=== PATIENT | female | born 1945 | race Caucasian/White ===

== ENCOUNTER 2023-11-28 02:40 | Observation (INO) | payer OTHER, SELFPAY ==
[2023-11-27 22:52] VITALS: BP 168/67
[2023-11-27 23:26] LABS: Hematocrit 36.6 % (37.0-47.0); Hemoglobin 12.8 g/dL (12.0-16.0); Mean Corpuscular Hgb 30.1 pg (27.0-31.0); Mean Corpuscular Volume 86.1 fL (81.0-99.0); Platelet Count 237 10^3/uL (130-400); Red Blood Cell Count 4.25 10^6/uL (4.20-5.40); White Blood Cell Count 5.6 10^3/uL (4.8-10.8)
[2023-11-27 23:43] LABS: ALT (SGPT) 20 U/L (0-35); AST (SGOT) 28 U/L (14-36); Albumin 4.2 g/dl (3.5-5.0); Alkaline Phosphatase 66 U/L (38-126); Blood Urea Nitrogen 24 mg/dl (7-17); Calcium 9.1 mg/dl (8.4-10.2); Carbon Dioxide 30 mmol/L (22-30); Chloride 101 mmol/L (98-107); Glucose 165 mg/dl (70-99); Potassium 3.4 mmol/L (3.5-5.1); Sodium 134 mmol/L (135-145); Total Bilirubin 0.4 mg/dl (0.2-1.3); Total Protein 6.9 g/dl (6.3-8.2); eGFR 42.62
--- NOTE | 2023-11-27 23:48 | ED.GENMED ---
History of Present Illness
General
Chief Complaint: Dizziness
Source: patient
Exam Limitations: none
Time Seen by Provider: 11/27/23 23:13
Nursing documentation reviewed up to this point in time: agreed with
Travel History
Have you had any contact with someone who has COVID-19?: No
Do you have any symptoms of coronavirus? Fever > 100 degrees, chills, cough, shortness of breath, sore throat, loss of taste or smell, muscle aches, or headache?: No
History of Present Illness
History of Present Illness:
77-year-old female presents the emergency department due to feeling dizzy after an dinner at about 830 tonight, headache, nausea and vomiting. She feels forgetful episode trouble and was having trouble remembering who the president was.
Past History
Past History
ED Past Medical History: HTN
ED Past Surgical History: , Gynecological (hysterectomy), Orthopedic (wrist surgery), Tonsilectomy and Other (lymph node dissection)
Social History
Tobacco: Non-smoker
Alcohol: None
Drug: None
Personal:
Living: with family
Review of Systems
Review of Systems
Allergies reviewed?: Yes
All Other Systems: Not applicable
Constitutional: Reports no symptoms
EENT: Reports no symptoms
Respiratory: Reports no symptoms
Cardiac: Reports no symptoms
ABD/GI: Reports nausea and vomiting
: Reports no symptoms
Musculoskeletal: Reports no symptoms
Skin: Reports no symptoms
Neurological: Reports no symptoms
Endocrine: Reports no symptoms
Hematologic/Lymphatic: Reports no symptoms
Psychiatric: Reports no symptoms
Phy Exam
Physical Exam
Physical Exam:
Physical Exam
General: no apparent distress, not acutely ill
Neck: supple. no meningeal signs. normal posterior pharynx
Heart: s1/s2 regular rate and rhythm, no murmur. equal radial
pulses.
HEENT: Pupils equal round reactive to light, EOMI
Lungs: no acute respiratory distress. clear bilaterally
Abdomen: normal bowel sounds. not tender. no CVAT
Neuro: alert and oriented. no focal neurological deficits cranial nerves II through XII intact intermittent mild expressive aphasia
Skin: no rash
Psychiatric: well kept. interactive and cooperative
Extremities: no edema. no calf tenderness. negative homans. good distal pulses
Scores
NIH Stroke Score
Level of Consciousness: 0 - Alert
LOC Questions: 0-Answers both correctly
LOC Commands: 0-Performs both correctly
Best Horizontal Gaze: 0-Normal
Visual Dhaliwal: 0=Normal, no visual loss
Facial Palsy: 0=Normal, symmetrical
Motor - Right Arm: 0=No drift 10 seconds
Motor - Left Arm: 0=No drift 10 seconds
Motor - Right Le-No drift 5 seconds
Motor - Left Le-No drift 5 seconds
Limb Ataxia: 0-Absent
Sensation: 0-Normal
Best Language: 1-Mild aphasia
Dysarthria: 0-Normal
Extinction and Inattention: 0-No abnormality
Total Score:: 1
Thrombolytic Contraindication
Inclusion and Exclusion criteria reviewed: Yes
IAT Contraindications: NIHSS < 6
Course
Orders/Labs/Results
Orders:
Orders
11/27/23 23:00
EKG [Electrocardiogram (*1)] Urgent
Reason for Study: Vertigo / Dizzy
EKG- Treatment ONCE
11/27/23 23:22
CBC/No Diff [Complete Blood Count/No Diff] Urgent
CMP [Comprehensive Metabolic Panel] Urgent
11/27/23 23:45
CT Head W/o Cont STROKE ALERT Urgent
Reason For Exam: expressive aphasia
CT Head/Neck Ang STROKE ALERT Urgent
Comment:
Reason For Exam: expressive aphasia since 830pm
11/27/23 23:49
Aspirin 325 mg PO NOW STA
Clopidogrel Bisulfate [Plavix] 75 mg PO NOW STA
11/28/23 02:03
Admit/Transfer Patient As Directed
Co-Sign Provider:
Level of Care: Observation services
Assign to:: Telemetry
Physician / Group: Randy
Diagnosis: CVA / TIA
Reason for Telemetry: CVA/TIA
Date to Stop Telemetry: 12/01/23
Time to Stop Telemetry: 11:00
Code Status As Directed
Resuscitation Status: Full Code
11/28/23 04:40
Acetaminophen [Tylenol] 650 mg PO Q4HPRN PRN
HydrALAZINE [Apresoline] 5 mg IV Q6HPRN PRN
Lactated Ringers [Lr] 1,000 ml IV 80 mls/hr
Prochlorperazine [Compazine] 5 mg IV Q6HPRN PRN
11/28/23 04:40
NEUROLOGY CONSULT Routine
Consulting Provider: Toyin Strong
Was physician already notified: Yes
Reason for consult: CVA / TIA
Activity As Directed
Activity Level: Ambulate
With Assistance
EKG with chest pain [ECG as needed] As Directed
ECG as needed for:: Chest Pain
I/O [Intake/ Output] As Directed
Frequency: Per unit guidelines
Neurological Checks As Directed
Frequency: q4h
Orthostatic Vital Signs As Directed
Orthostatic VS Frequency: BID
Pneumatic Compression Sleeves As Directed
Type: Knee high
Vital Signs As Directed
Frequency: Per unit guidelines
Weight As Directed
Frequency: Daily
Oxygen Therapy [O2 Therapy] [RESP] Routine
Titrate/Wean O2 to maintain O2 sat greater than (%): 94
Ot Eval And Treat Routine
PT Consult [Pt Eval And Treat] Routine
Activity Level: Ambulate
With Assistance
DX Deep Vein Thrombosis Video Routine
11/28/23 04:53
Basic Metabolic Panel IN AM
Cardiovascular Evaluation IN AM
Complete Blood Count/No Diff IN AM
11/28/23 06:00
MR Brain Without Contrast IN AM
Comment:
Reason For Exam: CVA / TIA
Recent pill cam endoscopy?: No
11/28/23 08:00
Aspirin Chewable [Low Strength Aspirin] 81 mg PO DAILY
Clopidogrel Bisulfate [Plavix] 75 mg PO DAILY
Olmesartan Medoxomil [Benicar] 20 mg PO DAILY
Speech Screening from Bharathi Routine
11/29/23 Breakfast
Regular
12/01/23 11:00
DC Protocol for Telemetry ONCE
Abnormal Lab Results
11/27/23
23:22
Hct 36.6 L %
(37.0-47.0)
Sodium 134 L mmol/L
(135-145)
Potassium 3.4 L mmol/L
(3.5-5.1)
BUN 24 H mg/dl
(7-17)
Creatinine 1.3 H mg/dL
(0.6-1.0)
Glucose 165 H mg/dl
(70-99)
11/27/23 23:22
11/27/23 23:22
Vital Signs
Initial and Last Documented VS:
Initial Vital Signs
Temp Pulse Resp BP Pulse Ox
97.7 F 65 18 168/67 98
11/27/23 22:52 11/27/23 22:52 11/27/23 22:52 11/27/23 22:52 11/27/23 22:52
Last Documented Vital Signs
Temp Pulse Resp BP Pulse Ox
97.7 F 71 13 189/79 96
11/27/23 22:52 11/28/23 05:30 11/28/23 02:15 11/28/23 02:37 11/28/23 05:30
MDM/Problems Addressed
Differential Diagnosis Includes:
CVA, TIA
MDM/Problems Addressed:
78-year-old female with possible mild CVA versus TIA. Discussed with neurology, recommended aspirin and Plavix.
Chronic conditions affecting care: HTN and Other (Ulcerative colitis)
Acute Exacerbation and/or Progression of Chronic Illness: HTN
*Radiology
Radiology exam reviewed: radiology read reviewed (ct head nad, cta shows narrowing of left A2, otherwise no largre vessel occlusion)
*Pulse Oximetry
Patient hypoxic: no
*EKG
Interpreted by ED Provider?: Yes
EKG Intrepretation Date: 11/28/23
EKG Intrepretation Time: 23:34
Interpretation: abnormal
Comparison EKG: no comparison EKG present
Heart Rate: 64
Rate: normal
Rhythm: sinus and PAC's
Fitzpatrick: normal axis
Interval: normal interval
QRS Pattern: normal QRS
Ischemia: no ischemia
*Teaching Manager Interpretation
Rate: Teaching Manager- N/A
*Critical Care Note
Total Time (30-74mins, 75-104mins- exclusive of procedures): Not Applicable
Patient Management
Social determinants of health affecting care: Strong social support
Discussion with other providers: Hospitalist and Quarter Backer (neurology Dr. Strong)
Escalation/DeEscalation of care consider admission/obs:
admit indicated
ED Attending Note
-
Portions of this chart may have been created with voice recognition software.� Occasional wrong word or��sound alike� substitutions may have occurred due to the inherent limitations of voice recognition software.
Discharge Plan
Departure
Patient Disposition: Admit
Date of Disposition: 11/28/23
Time of Disposition: 00:43
Presentation/result/management discussed w/ accepting MD/DO: Hospitalist
Patient with high blood pressure during this ER visit?: Yes
Condition: Good
Discharge Problem:
TIA (transient ischemic attack)
Interventions
Interventions:
*Risk Screen - Suicide Last Done: 11/28/23 00:35
*General Assessment Last Done: 11/27/23 22:54
*Neglect/Abuse Screening Last Done: 11/28/23 00:35
*ED COVID-19 Vaccine History Last Done: 11/27/23 22:53
ED- Neurological Assessment Last Done: 11/27/23 23:15
ED Swallowing Screen Last Done: 11/28/23 00:19
[2023-11-28] VITALS (16 sets, daily range): BP systolic 116–198; BP diastolic 69–97; PULSE 86–110; BMI 23.3; BMI 22.1
[2023-11-28] MEDS: ASPIRIN 325 MG PO (00:16)
[2023-11-28] MEDS: PLAVIX 75 MG PO ×2 (00:16→08:22)
--- NOTE | 2023-11-28 02:07 | HPS.HSE ---
Family Physician
-
Family Physician: Malika Doan
Chief Complaint
-
Weakness, N/V, Word-finding difficulty
History of Present Illness
Patient is a 78y F with PMH significant for hypertension, depression and PMR who presents to ED complaining of episode of weakness, etc this evening. Patient states that she had a very stressful day today. She went to visit her daughter who is
very ill and soon to be homeless. It was a distressing visit. Patient returned home and was watching TV this evening when she began to feel 'weak all over'. No focal symptoms, numbness, vision changes, etc. This was approximately 9:30 PM.
Shortly thereafter, patient states that she felt like she was spinning and she developed N/V x multiple episodes. EMS was called.
On their arrival, patient was unable to recall the name of president, her social security number and some other information that she states she is typically well aware of.
She had no slurred speech or facial droop. No focal numbness / weakness. Patient did complain of a frontal headache.
Patient admits that her last several months in general have also been very stressful. She recently lost her own house, suffered a significant LUE injury in the summer and has had issues with family / daughter as noted above.
Patient denies any prior history of CVA. No prior history of similar symptoms.
She had GCA / PMR a few years ago. She completed treatment (with an infusion therapy) and has had no recurrence of symptoms since that time.
Patient denies any recent med changes.
Medical History
Past Medical History
Past Medical History: Reports Other
Additional Past Medical History:
GCA / PMR
Hypertension
Anxiety / Depression
Ulcerative Colitis
Breast Cancer s/p Lumpectomy / XRT
Past Surgical History: Reports Other
Additional Past Surgical History:
T&A
Uvulectomy
Cataracts
LUE ORIF
Foot Surgery
x 3
Bilateral Lumpectomy / Axillary Dissections (separate occurrences)
Lipoma Excision (abdomen)
Urethral Dilation
Social History
Tobacco: Non-smoker
Alcohol: None
Drug: None
Family History
Family History: Not pertinent
Allergies / Home Medications
Allergies reflects when Allergies were last updated in [employer].
Home Medications with original date entered in [employer]
Allergy/Medication List:
Allergies
Allergy/AdvReac Type Severity Reaction Status Date / Time
Penicillins Allergy Unknown Verified 11/27/23 22:49
Home Medications
duloxetine 11/28/23
magnesium 11/28/23
mesalamine 11/28/23
multivitamin 11/28/23
olmesartan 11/28/23
potassium 11/28/23
If Other, explain: Patient is not aware of current doses.
Review of Systems
-
History Source: Patient
A 12 point ROS was completed and negative except as noted: Yes
Constitutional: Reports Fatigue; Denies Fever or Chills
EENT: Denies Sore Throat
Respiratory: Denies Cough or Trouble Breathing
Cardiac: Denies Chest Pain or Palpitations
Abdomen/GI: Reports Nausea and Vomiting; Denies Abdominal Pain, Diarrhea, Constipated, Bloody Stools or Black Stools
: Denies Dysuria, Frequency, Flank Pain or Incontinence
Musculoskeletal: Denies Joint Pain or Edema
Neurological: Reports Dizzy, Headache and Other (Speech difficulty); Denies Weakness or Numbness
Psych: Reports Depression and Anxiety
Physical Exam
Vital Signs
Vital Signs
Temp Pulse Resp BP Pulse Ox
97.7 F 72 22 187/85 96
11/27/23 22:52 11/28/23 01:45 11/28/23 01:30 11/28/23 01:00 11/28/23 01:30
Physical Exam
General: Other (78y F in no acute distress.)
HEENT: Moist mucous membranes and PERRLA
Respiratory: Clear; No Wheezes, Rales or Rhonchi
Cardiac: S1/S2 and Regular Rhythm; No Murmur
GI: Soft, Non Tender, Non Distended and Normal Bowel Sounds
Musculoskeletal: No Clubbing, No Cyanosis and No Edema
Neuro: AO x 3 and Nonfocal/grossly intact
Laboratory Results
-
11/27/23 23:22
11/27/23 23:22
Laboratory Results
Total Bilirubin 0.4 mg/dl (0.2-1.3) 11/27/23 23:22
AST 28 U/L (14-36) 11/27/23 23:22
ALT 20 U/L (0-35) 11/27/23 23:22
Alkaline Phosphatase 66 U/L (38-126) 11/27/23 23:22
Impression/Plan
-
A/P: Patient is a 78y F with PMH significant for anxiety / depression and GCA / PMR who presents to ED complaining of weakness, N/V and word-finding difficulty.
Word Finding Difficulty / Expressive Aphasia
Headache / Dizziness
N/V
- Observe overnight for further evaluation and treatment.
- CT and CTA essentially unremarkable in the ED. A2 stenosis noted but not consistent with presenting symptoms.
- Check MR brain in AM.
- Neuro checks throughout the night.
- Monitor on tele. Serial exams.
- Neuro eval in AM.
- ASA / Plavix for now.
- Follow for any new / recurrent symptoms.
- Seems likely that symptoms are related to / triggered by recent significant stressors as outlined in HPI.
- ? pre-syncope given description of symptoms.
Hypertension - Uncontrolled
- Patient states that her BP has been high at PCP visits recently. She has f/u visit upcoming.
- On olmesartan but cannot recall dose.
- Continue at 20mg daily for now and adjust / add to regimen as needed for improved BP control.
Anxiety / Depression
- Recent increase in stressors as noted.
- Resume duloxetine once dose has been verified.
- Consider outpatient Psych evaluation for additional recommendations / support.
Ulcerative Colitis
- Stable. No recent GI issues / symptoms.
- Resume mesalamine one dose verified.
DVT Prophylaxis: SCDs
Code Status: Full
[2023-11-28] MEDS: LR 1000 IV (04:00)
[2023-11-28 05:17] LABS: Hemoglobin 12.2 g/dL (12.0-16.0); Mean Corp Hgb Conc. 34.9 g/dL (33.0-37.0); Mean Corpuscular Hgb 30.4 pg (27.0-31.0); Mean Corpuscular Volume 87.3 fL (81.0-99.0); Mean Platelet Volume 9.1 fL (7.4-10.4); Platelet Count 253 10^3/uL (130-400); Red Blood Cell Count 4.01 10^6/uL (4.20-5.40); Red Cell Dist. Width 12.9 % (11.5-14.5); White Blood Cell Count 5.5 10^3/uL (4.8-10.8)
[2023-11-28 05:48] LABS: Blood Urea Nitrogen 24 mg/dl (7-17); Carbon Dioxide 28 mmol/L (22-30); Chloride 99 mmol/L (98-107); Estimated Creatinine Clearance 32 ml/min; Glucose 144 mg/dl (70-99); HDL Cholesterol 81 mg/dl; LDL Cholesterol, Calculated 105 mg/dl; Potassium 3.5 mmol/L (3.5-5.1); Sodium 135 mmol/L (135-145); Total Cholesterol 196 mg/dl (50-199); Triglyceride 53 mg/dl (10-149); Very Low Density Lipoprotein 10 mg/dl (0-30); eGFR 51.75
--- NOTE | 2023-11-28 07:49 | W.PN.HOSP.TC ---
Today's Communication/Plan
-
see A/P
Assessment / Plan
Assessment / Plan
HPI: 78y F with PMH significant for hypertension, depression and PMR who presented to ED complaining of episode of weakness.� Patient states that she had a very stressful day.� She went to visit her daughter who is very ill and soon to be
homeless.� It was a distressing visit.� Patient returned home and was watching TV when she began to feel 'weak all over'.� No focal symptoms, numbness, vision changes, etc.� This was approximately 9:30 PM.� Shortly thereafter, patient states that
she felt like she was spinning and she developed N/V x multiple episodes.� EMS was called.
On their arrival, patient was unable to recall the name of president, her social security number and some other information that she states she is typically well aware of.
She had no slurred speech or facial droop.� No focal numbness / weakness.� Patient did complain of a frontal headache.
Patient admits that her last several months in general have also been very stressful.� She recently lost her own house, suffered a significant LUE injury in the summer and has had issues with family / daughter as noted above.
Patient denies any prior history of CVA.� No prior history of similar symptoms.
She had GCA / PMR a few years ago.� She completed treatment (with an infusion therapy) and has had no recurrence of symptoms since that time.
Patient denies any recent med changes.
A/P:
# Word Finding Difficulty / Expressive Aphasia
# Headache / Dizziness
# N/V
Neurologic symptoms have resolved.
Symptoms related to / triggered by recent significant stressors as outlined in HPI.
? somatization vs pre-syncope vs stroke rule out
CT and CTA essentially unremarkable.� A2 stenosis noted but not consistent with presenting symptoms.
Check MR brain
Neuro checks throughout the night.
Monitor on tele.� Serial exams.
Neuro eval
ASA / Plavix for now.
# Hypertension - Uncontrolled
Patient states that her BP has been high at PCP visits recently.� She has f/u visit upcoming.
On olmesartan but cannot recall dose. Continue at 20mg daily for now and adjust / add to regimen as needed for improved BP control.
IV Hydralazine PRN
# Anxiety / Depression
Recent increase in stressors as noted.
Resume duloxetine once dose has been verified.
Consider outpatient Psych evaluation for additional recommendations / support.
# Ulcerative Colitis, Stable.�
No recent GI issues / symptoms.
Resume mesalamine one dose verified.
DVT Prophylaxis:� SCDs
Code Status:� Full
Anticipated Discharge: Within 24 hours
Subjective/Interval History
-
Date of Service: November 28, 2023
Objective Data
-
Labs:
Laboratory Results
11/27/23 11/28/23
23:22 04:53
WBC 5.6 5.5
Hgb 12.8 12.2
Hct 36.6 L 35.0 L
Plt Count 237 253
Sodium 134 L 135
Potassium 3.4 L 3.5
Chloride 101 99
Carbon Dioxide 30 28
BUN 24 H 24 H
Creatinine 1.3 H 1.1 H
Glucose 165 H 144 H
Calcium 9.1 9.0
Total Bilirubin 0.4
AST 28
ALT 20
Alkaline Phosphatase 66
Vital Signs:
Vital Signs
Temp Pulse Resp BP Pulse Ox
36.5 C 71 13 189/79 96
11/27/23 22:52 11/28/23 07:30 11/28/23 02:15 11/28/23 02:37 11/28/23 07:30
I&O
11/27/23 11/28/23 11/29/23
06:59 06:59 06:59
Intake Total 440 / 440
Output Total 200 / 200
Balance 240 / 240
Review of Systems
-
All other systems: Reviewed and negative
Physical Exam
-
General: Well Developed, Well Nourished, No Apparent Distress, Comfortable and Conversant; Negative Respiratory Distress
HEENT: Normocephalic, Atraumatic, Nose Appears Normal and Ears Appear Normal; Negative Oxygen
Respiratory: Clear to Auscultation and Non Labored Respirations; Negative Accessory Resp Muscle Use
Cardiac: Regular Rhythm and S1/S2
GI: Soft, Nontender, Nondistended and Normal Bowel Sounds
Skin: Warm and Dry
Neuro: Awake, Alert, Oriented and AO x 3
Psych: Calm and Intact Judgement/Insight
Data Reviewed
-
CT Scan: Report Reviewed by me
Labs: Labs Reviewed by me
[2023-11-28] MEDS: LOW STRENGTH ASPIRIN 81 MG PO (08:22)
[2023-11-28] MEDS: BENICAR 20 MG PO (09:00)
[2023-11-28] MEDS: KCL 40 MEQ PO (09:04)
--- NOTE | 2023-11-28 10:12 | CON.NEURO4 ---
Consultation - Neurology 4
-
CONSULTING PHYSICIAN: Dr. Strong
REFERRING PHYSICIAN: Dr. Garcia
DICTATED BY: Dr. Strong
DATE/TIME OF REQUEST: 11/27/23 in the late evening
DATE/TIME OF CONSULTATION: 11/28/23 at 915
Reason for Consultation: weakness, word finding difficulty
History of Present Illness:
78-year-old female with past medical history of hypertension, UC, breast cancer status post chemotherapy, lumpectomy and XRT resulting in some 'chemo brain' since 2014, head trauma, GCA/PMR anxiety and depression brought in yesterday evening after
9:30 PM on that of generalized weakness, nausea and vomiting, 'feeling like she was off-center but the room was not spinning around her,' found to have confusion and word finding difficulty. On arrival she could not name the president, her Social
Security number or other basic information she would normally know. She describes symmetric weakness in arms and legs. She 'very sick dog that she normally has to carry up the stairs before bed and she cannot hold them up.' She had a frontal
headache with the event. No clear change in her speech. Does have some degree of baseline dysarthria as she is a dental list. No clear facial droop. No focal numbness. She states that she had a migraine headache decades ago but has no right or
history of migraine. No prior history of stroke or seizure.
He had a concussion several years ago when she slipped on a wet surface and fell flat on her back, striking the back of her head. No associated loss of consciousness.
She reported on baseline level of 'chemo brain' since getting chemo for breast cancer in 2014.
She has been experiencing a severe level of stress. She injured her LUE. In the last few months she lost her house. Her dog has cancer. She had a very stressful day yesterday after visiting her daughter who is ill and soon to be homeless. This
event occurred after returning home from seeing her daughter. She states that she lives with her partner who and generally 'tries to micromanage her' which increases her stressful. She denies any physical or verbal abuse. She to duloxetine as an
outpatient. She states that she has had trouble finding a psychiatrist as an outpatient after her previous provider no longer takes her insurance.
Past Medical History:
GCA / PMR
Hypertension
Anxiety / Depression
Ulcerative Colitis
Breast Cancer s/p Lumpectomy / XRT
head trauma
Surgical History:
T&A
Uvulectomy
Cataracts
LUE ORIF
Foot Surgery
x 3
Bilateral Lumpectomy / Axillary Dissections (separate occurrences)
Lipoma Excision (abdomen)
Urethral Dilation
Family History:
reviewed and noncontributory
Social History:
Tobacco: Non-smoker
Alcohol: None
Drug: None
Allergies
Penicillins Allergy (Verified 11/27/23 22:49)
Unknown
Home Medications
Medication Instructions Recorded
duloxetine 11/28/23
magnesium 11/28/23
mesalamine 11/28/23
multivitamin 11/28/23
olmesartan 11/28/23
potassium 11/28/23
Review of Symptoms:
Patient denies any fever, headache, chest pain, shortness of breath, GI or symptoms.
�Per the HPI.�All systems are reviewed negative except above.
Vital Signs
Temp Pulse Resp BP Pulse Ox
97.7 F 66 13 127/83 96
11/27/23 22:52 11/28/23 09:45 11/28/23 02:15 11/28/23 08:24 11/28/23 08:30
Lab Results
11/28/23 04:53
11/28/23 04:53
Sodium 135 mmol/L (135-145) 11/28/23 04:53
Potassium 3.5 mmol/L (3.5-5.1) 11/28/23 04:53
BUN 24 mg/dl (7-17) H 11/28/23 04:53
Glucose 144 mg/dl (70-99) H 11/28/23 04:53
Calcium 9.0 mg/dl (8.4-10.2) 11/28/23 04:53
LDL Cholesterol, Calc 105 mg/dl 11/28/23 04:53
Physical Exam:
The patient is afebrile, heart sounds S1 and S2 are regular and chest is clear to auscultation bilaterally.
NIH Stroke Scale:
I performed the NIH stroke scale on the patient on 11/28/23 at . The patient scored 3 points on the NIH stroke scale assessment. 1 point for LUE motor (unclear if this is baseline--does have a h/o LUE injury), 1 point each for BLE motor with
giveaway weakness.
Neurologic Examination:
The patient is awake, alert and oriented x 3. She is able to follow commands and answer questions appropriately. There is no aphasia; some mild dysarthria that appears to be her baseline as she is edentulous. On cranial nerve assessment, pupils
are 3 mm bilateral, round and reactive to light and accommodation. Visual corral are full. Extraocular movements are intact. Facial sensations are intact and bilaterally symmetrical, there is no facial asymmetry. Hearing is intact bilaterally to
normal conversation volume. Tongue palate and uvula are midline. Sternocleidomastoid strengths are full bilaterally. On motor exam she exhibited giveaway weakness in the LUE and BLE. Deep tendon reflexes are 2+ bilateral upper and lower extremities
and Babinski is absent bilaterally. Sensations of temperature and light touch are intact and bilaterally symmetrical. There was no extinction noted on double simultaneous stimulation. Coordination is intact by finger to nose bilaterally.
Neuro Imaging:
HCT done 11/27:
'No acute intracranial abnormality noted.
No acute intracranial hemorrhage. No radiographic evidence to suggest acute large vascular territory transcortical infarct at this time. Minor chronic senescent white matter changes.'
CTA head/neck:
No intracranial cerebral arterial thrombus or occlusion.
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 Left anterior cerebral artery proximal A2 segment with moderate to severe narrowing.
Mild atherosclerotic narrowing of the bilateral MCA M1 segments without critical stenosis.
Moderate narrowing of the proximal left cavernous ICA.
Mild atherosclerotic changes of the right proximal ICA without hemodynamically significant stenosis.
Impression:
BEV SHIN is a 78 year old F who has presented to the hospital with an event consisting of generalized weakness, 'feeling off-center,' nausea, multiple episodes of vomiting and some confusion/difficulty with word finding. With this she also
complained of a frontal headache. She has been under significant amount of stress. She states that currently all symptoms have resolved within generalized weakness, frontal headache and some photophobia.
Differentials for the patient's presentation include:
1. conversion disorder
2. complicated headache
3. less likely stroke given nature of symptoms/giveaway weakness on exam
Patient has the following risk factors for their symptoms: age, htn
IV Tenecteplase/IAT candidacy: not a candidate for TNK as symptoms felt not to be debilitating, CTA negative for LVO
Recommendations:
-check MRI brain without contrast to evaluate for stroke
-CTA results noted; does have some L cavernous ICA narrowing; on antiplatelet (see below)
-BP goal is normotension.
-loaded with ASA 325mg and Plavix 75mg in ED; now on DAPT; would continue x 90 days given intracranial vascular findings, then single ASA 81mg daily after; consider vascular neurology evaluation as outpatient
- Check hemoglobin A1C. Goal is normoglycemia.
- Please start the patient on atorvastatin 40mg by mouth daily at bedtime. LDL is 105.
-PT/OT/ST evaluations
- DVT prophylaxis
-continue neurochecks
-needs to be set up with an outpatient psychiatrist and psychologist due to significant stressors. Continue duloxetine. Discussed at length with her--partner is a source of stress but states that she feels safe at home; denies physical or verbal
abuse.
-should f/u as an outpatient with neurology to monitor from vascular standpoint and headache standpoint
Discussed patient care with: patient, ER
[2023-11-28] MEDS: APRESOLINE 5 MG IV (11:28)
[2023-11-28] MEDS: LIPITOR 40 MG PO (19:53)
--- NOTE | 2023-11-28 23:52 | PTCARENOTE ---
Assumed care of pt from day shift RN. Pt AAOx3 VSS. Pt reports much improvement in symptoms. Oriented to room, call vernon and plan of care.
[2023-11-29 00:05] VITALS: BP 136/89
[2023-11-29 04:06] VITALS: BP 156/63
[2023-11-29 07:00] VITALS: BP 170/81
[2023-11-29 08:04] LABS: Blood Urea Nitrogen 26 mg/dl (7-17); Calcium 9.2 mg/dl (8.4-10.2); Carbon Dioxide 29 mmol/L (22-30); Chloride 101 mmol/L (98-107); Estimated Creatinine Clearance 36 ml/min; Glucose 126 mg/dl (70-99); Magnesium 2.3 mg/dl (1.6-2.3); Potassium 4.4 mmol/L (3.5-5.1); Sodium 137 mmol/L (135-145); eGFR 58.02
[2023-11-29 08:12] VITALS: BP 156/120; BP 170/81; BP 192/91; PULSE 72; PULSE 82
[2023-11-29 08:32] LABS: Hematocrit 40.3 % (37.0-47.0); Hemoglobin 13.4 g/dL (12.0-16.0); Mean Corp Hgb Conc. 33.3 g/dL (33.0-37.0); Mean Corpuscular Hgb 30.1 pg (27.0-31.0); Mean Corpuscular Volume 90.6 fL (81.0-99.0); Mean Platelet Volume 9.4 fL (7.4-10.4); Platelet Count 251 10^3/uL (130-400); Red Blood Cell Count 4.45 10^6/uL (4.20-5.40); Red Cell Dist. Width 12.9 % (11.5-14.5); White Blood Cell Count 6.3 10^3/uL (4.8-10.8)
--- NOTE | 2023-11-29 09:31 | CM ---
Patient seen bedside, initial assessment completed. Patient reports she lives with her significant other in a multiple story home, denies DME. Patient reports she has had [facility] in the past, recently completed outpatient PT at [facility] in
[place] for an arm fracture. Patient denies SNF. Patient PCP Dr. Doan, pharmacy [facility] [place]. [place] letter reviewed, signed, placed in patients chart. Patient provided with a copy. CM will continue to follow for discharge planning needs.
Plan; home no needs anticipated.
--- NOTE | 2023-11-29 09:49 | W.PN.HOSP.TC ---
Addendum entered and electronically signed by Kayla Marx MD 11/29/23 14:18:
Total DC time 35 minutes
Original Note:
Today's Communication/Plan
-
DC Home
Assessment / Plan
Assessment / Plan
HPI: 78y F with PMH significant for hypertension, depression and PMR who presented to ED complaining of episode of weakness.� Patient states that she had a very stressful day.� She went to visit her daughter who is very ill and soon to be
homeless.� It was a distressing visit.� Patient returned home and was watching TV when she began to feel 'weak all over'.� No focal symptoms, numbness, vision changes, etc.� This was approximately 9:30 PM.� Shortly thereafter, patient states that
she felt like she was spinning and she developed N/V x multiple episodes.� EMS was called.
On their arrival, patient was unable to recall the name of president, her social security number and some other information that she states she is typically well aware of.
She had no slurred speech or facial droop.� No focal numbness / weakness.� Patient did complain of a frontal headache.
Patient admits that her last several months in general have also been very stressful.� She recently lost her own house, suffered a significant LUE injury in the summer and has had issues with family / daughter as noted above.
Patient denies any prior history of CVA.� No prior history of similar symptoms.
She had GCA / PMR a few years ago.� She completed treatment (with an infusion therapy) and has had no recurrence of symptoms since that time.
Patient denies any recent med changes.
A/P:
# Word Finding Difficulty / Expressive Aphasia, likely somatization / conversion disorder
# Headache / Dizziness
# N/V
Neurologic symptoms have resolved.
Symptoms likely related to / triggered by recent significant stressors as outlined in HPI.
acute stroke has been ruled out with neg MRI brain, CT head/CTA also essentially unremarkable (A2 stenosis noted but not consistent with presenting symptoms)
Per neuro, recc to continue DAPT x 90 days given intracranial vascular findings, then single ASA 81mg daily after; consider vascular neurology evaluation as outpatient
PT OT eval: no need
Informed pt to follow up with outpatient psychiatrist and psychologist for her stressors in life. Can follow up at [facility] (she has a friend who works there). Continue duloxetine for now.�
Follow up with outpatient neurology to monitor from vascular standpoint and headache standpoint
# Hyperlipemia
LDL 105
started Lipitor 40 mg
# Hypertension - Uncontrolled
Patient states that her BP has been high at PCP visits recently.� She has f/u visit upcoming.
On olmesartan but cannot recall dose. Increase from current 20mg daily to 40 mg daily, outpatient BMP with result to PCP in 1 week.
IV Hydralazine PRN
# Anxiety / Depression
Recent increase in stressors as noted.
Resumed duloxetine
Consider outpatient Psych evaluation for additional recommendations / support as noted above
# Ulcerative Colitis, Stable.�
No recent GI issues / symptoms.
Resume mesalamine one dose verified.
DVT Prophylaxis:� SCDs
Code Status:� Full
Anticipated Discharge: Today
Subjective/Interval History
-
Date of Service: November 29, 2023
Objective Data
-
Labs:
Laboratory Results
11/29/23
07:29
WBC 6.3
Hgb 13.4
Hct 40.3
Plt Count 251
Sodium 137
Potassium 4.4 D
Chloride 101
Carbon Dioxide 29
BUN 26 H
Creatinine 1.0
Glucose 126 H
Calcium 9.2
Vital Signs:
Vital Signs
Temp Pulse Resp BP Pulse Ox
36.8 C 72 16 170/81 99
11/29/23 07:00 11/29/23 07:00 11/29/23 07:00 11/29/23 07:00 11/29/23 07:00
I&O
11/28/23 11/29/23 11/30/23
06:59 06:59 06:59
Intake Total 440 / 440 480 / 480
Output Total 200 / 200
Balance 240 / 240 480 / 480
Review of Systems
-
All other systems: Reviewed and negative
Physical Exam
-
General: Well Developed, Well Nourished, No Apparent Distress, Comfortable and Conversant; Negative Respiratory Distress
HEENT: Normocephalic, Atraumatic, Nose Appears Normal and Ears Appear Normal; Negative Oxygen
Respiratory: Clear to Auscultation and Non Labored Respirations; Negative Accessory Resp Muscle Use
Cardiac: Regular Rhythm and S1/S2
GI: Soft, Nontender, Nondistended and Normal Bowel Sounds
Skin: Warm and Dry
Neuro: Awake, Alert, Oriented and AO x 3
Psych: Calm and Intact Judgement/Insight
Data Reviewed
-
MRI: Report Reviewed by me and Discussed with Patient
Labs: Labs Reviewed by me
[2023-11-29] MEDS: LOW STRENGTH ASPIRIN 81 MG PO (11:19)
[2023-11-29] MEDS: PLAVIX 75 MG PO (11:20)
[2023-11-29] MEDS: BENICAR 20 MG PO (11:20)
[2023-11-29 11:37] VITALS: BP 168/86
--- NOTE | 2023-11-29 12:34 | W.PN.NEURO.1 ---
Today's Communication / Plan
-
d/c
Neuro Assessment/Plan
Assessment
BEV SHIN is a 78 year old F who has presented to the hospital with an event consisting of generalized weakness, 'feeling off-center,' nausea, multiple episodes of vomiting and some confusion/difficulty with word finding.� With this she also
complained of a frontal headache.� She has been under significant amount of stress.� All symptoms have subsequently resolved.
Differentials for the patient's presentation include:�
1. � conversion disorder
2. � complicated headache
Plan
Recommendations:�
-reviewed all results and plan with patient
-MRI brain showed:
'No acute intracranial abnormality noted.
No acute infarct.
Mild chronic microvascular white matter ischemic disease. Tiny right frontal chronic infarct. Atrophy. Chronic sinusitis.'
-CTA results noted; does have some L cavernous ICA narrowing; on antiplatelet (see below)
Results:
'No intracranial cerebral arterial thrombus or occlusion.
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 Left anterior cerebral artery proximal A2 segment with moderate to severe narrowing.
Mild atherosclerotic narrowing of the bilateral MCA M1 segments without critical stenosis.
Moderate narrowing of the proximal left cavernous ICA.
Mild atherosclerotic changes of the right proximal ICA without hemodynamically significant stenosis'
-BP goal is normotension.
-loaded with ASA 325mg and Plavix 75mg in ED; now on DAPT; would continue x 90 days given intracranial vascular findings and chronic stroke finding of MRI, then single ASA 81mg daily after; needs outpatient vascular neurology evaluation to review
these findings/also would benefit for from outpatient f/u of any further headaches (report this has been her first one)
-Hemoglobin A1C pending. Goal is normoglycemia.
- Start the patient on atorvastatin 40mg by mouth daily at bedtime. LDL is 105.
-PT/OT/ST evaluations
- DVT prophylaxis
-continue neurochecks
-needs to be set up with an outpatient psychiatrist and psychologist due to significant stressors.� Continue duloxetine.� Discussed at length with her--partner is a source of stress but states that she feels safe at home; denies physical or verbal
abuse.
-should f/u as an outpatient with neurology to monitor from vascular standpoint and headache standpoint
-ok for d/c, reviewed with patient and Dr. Marx
Subjective/Objective
Subjective Data
Date of Service: November 29, 2023
reports complete resolution of symptoms today
Objective Data
Vital Signs
Temp Pulse Resp BP Pulse Ox
98.9 F 87 16 168/86 98
11/29/23 11:00 11/29/23 11:00 11/29/23 11:00 11/29/23 11:37 11/29/23 11:00
Lab Results
11/29/23 07:29
11/29/23 07:29
Sodium 137 mmol/L (135-145) 11/29/23 07:29
Potassium 4.4 mmol/L (3.5-5.1) D 11/29/23 07:29
BUN 26 mg/dl (7-17) H 11/29/23 07:29
Glucose 126 mg/dl (70-99) H 11/29/23 07:29
Calcium 9.2 mg/dl (8.4-10.2) 11/29/23 07:29
LDL Cholesterol, Calc 105 mg/dl 11/28/23 04:53
Patient Allergies
Penicillins Allergy (Verified 11/27/23 22:49)
Unknown
Physical Exam
-
General: Well Developed, Well Nourished and No Apparent Distress
Extended Neurological Exam
Mood & Affect: Mood Unremarkable and Affect Unremarkable
Attention Span & Concentration: Awake, Alert and Interactive
Memory: Unremarkable
Speech: Quality Unremarkable, Quantity Unremarkable and Rate of Production Unremarkable
Cranial Nerve II: Left Eye: Pupillary Reactivity Unremarkable and Pupillary Size Unremarkable
Cranial Nerve II: Right Eye: Pupillary Reactivity Unremarkable and Pupillary Size Unremarkable
Cranial Nerve V: Facial Sensation: Facial Sensation Unremarkable to Cold
Cranial Nerve VII: Facial Symmetry: Normal Facial Symmetry
Cranial Nerve VIII: Hearing: Unremarkable Hearing to Normal Conversational Volume
Cranial Nerves IX, X: Palate Movement: Palate Elevation Symmetric
Cranial Nerve XI: Shoulder Shrug: Unremarkable
Cranial Nerve XII: Tongue Protusion: Midline
Muscle Strength, Overall: Full Throughout
Deep Tendon Reflexes: Unremarkable Throughout
Cold Sensation: Unremarkable
Touch Sensation: Unremarkable
Coordination: [id number] Testing Unremarkable
Modified [place] Score (MRS)
-
MRS Score:
--- NOTE | 2023-11-29 14:00 | W.DCSUMMARY ---
Discharge Summary
Discharge Data
Date of Admission: 11/28/23
Date of Discharge: 11/29/23
-
Pending Results: No
Hospital Course
Principal Diagnosis:
Word Finding Difficulty / Expressive Aphasia, likely somatization / conversion disorder
New diagnosis of hyperlipidemia
Chronic Diagnoses:�
Essential hypertension
Anxiety / Depression
Ulcerative Colitis, Stable.�
Consultations:�
Neurology
Procedures:�
None
Clinical course:�
This is a 78 year old female with past medical history as stated above, who presented with word finding difficulty/expressive aphasia.
Earlier on the day of admission, she was having a very stressful day when she visited her daughter who is very ill and apparently soon to be homeless.
Later on that day, she developed headache and word finding difficulty.
Problem 1:
Word Finding Difficulty / Expressive Aphasia, likely somatization / conversion disorder.
The patient also had nonspecific neurologic symptoms such as headache/dizziness, nausea and vomiting, which have all resolved during her hospital stay.
Acute stroke has been ruled out with negative CT head and MRI brain. Her CTA was also essentially unremarkable (A2 stenosis noted but not consistent with presenting symptoms).
Per neuro, she can continue with DAPT x 90 days given intracranial vascular findings, then single ASA 81 mg daily after that; and consider vascular neurology evaluation as outpatient.
She was cleared by PT OT to return home.
The patient has also been informed to follow-up with outpatient psychiatrist and psychologist for her stressors in life.
Problem 2:
Newly diagnosed hyperlipemia with LDL at 105.
Lipitor 40 mg daily was started this admission which she can continue going forward.
Problem 3:
Essential Hypertension.
She is apparently on olmesartan at home, but cannot recall dose. She was discharged with olmesartan 40 mg daily.
She can check an outpatient BMP with result to PCP in 1 week.�
As for the rest of her medical problems, they were stable during her hospital stay.
Discharge Plan
-
Patient Disposition: Home (Routine Discharge)
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
Left anterior cerebral artery proximal A2 segment with moderate to severe narrowing; Essential hypertension; hyperlipidemia
Condition: Fair
Diet: As tolerated, Low Cholesterol and Low Sodium
Activity: As tolerated
Driving Restrictions: As prior to admission
Blood Work: BMP in 1 week, result to PCP
Activity Restrictions/Additional Instructions:
Take ASA and Plavix for 90 days given intracranial vascular findings, then single ASA 81mg daily after that
Follow up with outpatient neurology to monitor from vascular standpoint and headache standpoint.
You were started with Lipitor for elevated cholesterol (LDL 105)
Follow up with psychiatry /psychologist for your stressors in life.
Follow up with your PCP for your blood pressure.
Referrals:
Malika Doan MD [Family Provider] - in less than 1 week
Prescriptions:
New
atorvastatin 40 mg Tablet
40 mg PO QPM Qty: 30 0RF
aspirin [Children's Aspirin] 81 mg Tablet,Chewable
81 mg PO DAILY Qty: 90 0RF
clopidogrel 75 mg Tablet
75 mg PO DAILY Qty: 90 0RF
olmesartan [Benicar] 40 mg tablet
40 mg PO DAILY Qty: 30 0RF
Continued
mesalamine 1.2 gram Tablet,Delayed Release (Dr/Ec)
1.2 g PO BID
magnesium
duloxetine [Cymbalta] 20 mg Capsule,Delayed Release(Dr/Ec)
20 mg PO DAILY Qty: 30 0RF
Discontinued
Theragen Tablet
1 tab PO DAILY
olmesartan
potassium
Discharge Orders:
Discharge Patient (As Directed); Ordered 11/29/23
Ordered By: Kayla Marx
Discharge Date and Time
Discharge Date/Time: 11/29/23 12:17
[2023-11-29 14:45] LABS: Glycohemoglobin (HgbA1c) 6.9 % (4.0-5.6)
== END 2023-11-29 12:17 | disposition home or self-care (01) ==
LOC: 4 WEST ACU 02:40
PROVIDERS: Student in an Organized Health Care Education/Training Program; ADMITTING PHYSICIAN Hospitalist; ATTENDING PHYSICIAN Internal Medicine; CONSULT PHYSICIAN Psychiatry & Neurology Neurology; EMERGENCY PHYSICIAN Emergency Medicine; FAMILY PHYSICIAN Family Medicine
DX: R47.01 Aphasia (principal); R42 Dizziness and giddiness; R51.9 Headache, unspecified; R11.2 Nausea with vomiting, unspecified; E78.5 Hyperlipidemia, unspecified; I10 Essential (primary) hypertension; K51.90 Ulcerative colitis, unspecified, without complications; R53.1 Weakness; F32.A Depression, unspecified; M35.3 Polymyalgia rheumatica; F41.9 Anxiety disorder, unspecified; Z85.3 Personal history of malignant neoplasm of breast; Z92.3 Personal history of irradiation; Z88.0 Allergy status to penicillin
CPT/HCPCS: 70450; 70496; 70498; 70551; 80048; 80053; 80061; 83036; 83735; 85027; 93005; 96360; 99285; G0378; Q9967

== ENCOUNTER → 2024-03-09 10:28 | Outpatient (REF) | payer OTHER, SELFPAY | LOC: RCS 10:28 | PROVIDERS: ATTENDING PHYSICIAN Nurse Practitioner; FAMILY PHYSICIAN Family Medicine | DX: G45.9 Transient cerebral ischemic attack, unspecified (principal) | CPT/HCPCS: 93225; 93226 ==

== ENCOUNTER → 2024-04-01 14:02 | Outpatient (REF) | payer OTHER, SELFPAY | LOC: RCS 14:02 | PROVIDERS: ATTENDING PHYSICIAN Nurse Practitioner; FAMILY PHYSICIAN Family Medicine | DX: G45.9 Transient cerebral ischemic attack, unspecified (principal) | CPT/HCPCS: 93306 ==